=== PATIENT | female | born 1980 | race Caucasian/White ===

== ENCOUNTER → 2017-06-03 | Outpatient (CLI) | payer BC ==
[~2017-06-03] MED LIST: OXYC-57 PO; PRENTAB26 PO
== END | disposition home or self-care (01) ==
LOC: C.LABSPEC 12:54
PROVIDERS: ATTEND Physician Assistant
DX: N89.8 Other specified noninflammatory disorders of vagina (principal)

== ENCOUNTER → 2017-06-28 | Outpatient (CLI) | payer BC ==
[2017-06-28 09:26] LABS: PROLACTIN 7.4 ng/mL
== END | disposition home or self-care (01) ==
LOC: C.LAB 08:09
PROVIDERS: ATTEND Obstetrics & Gynecology
DX: N97.9 Female infertility, unspecified (principal)

== ENCOUNTER → 2017-10-08 | Outpatient (CLI) | payer BC ==
[2017-10-08 15:03] LABS: ALT/SGPT 21 U/L (12-78); AST/SGOT 20 U/L (15-37); CREATININE 0.66 mg/dl (0.60-1.20)
[2017-10-08 15:06] LABS: ALKALINE PHOSPHATASE 52 U/L (45-117)
== END | disposition home or self-care (01) ==
LOC: C.LAB1850 12:48
PROVIDERS: ATTEND Obstetrics & Gynecology
DX: Z51.81 Encounter for therapeutic drug level monitoring (principal); Z79.899 Other long term (current) drug therapy

== ENCOUNTER → 2018-01-17 | Outpatient (CLI) | payer BC ==
[2018-01-17 07:28] LABS: HEMATOCRIT 41.3 % (37-47); MEAN CORPUSCULAR HEMOGLOBIN 30.2 pg (25-34); MEAN CORPUSCULAR HGB CONC 33.9 g/dl (32-36); MEAN PLATELET VOLUME 8.4 fL (7.4-10.4); PLATELET COUNT 264 K/uL (130-400); RED CELL DISTRIBUTION WIDTH SD 41.8 fL (36.4-46.3); WHITE BLOOD COUNT 5.03 K/uL (4.8-10.8)
[2018-01-17 07:47] LABS: HEMOGLOBIN A1C 5.6 % (4.5-5.6)
[2018-01-17 09:03] LABS: HEP C IGG 13 YRS+OLDER_RFLX NEG (NEG)
== END | disposition home or self-care (01) ==
LOC: C.LAB 07:03
PROVIDERS: ATTEND Obstetrics & Gynecology Reproductive Endocrinology
DX: Z01.83 Encounter for blood typing (principal); E28.2 Polycystic ovarian syndrome; Z11.59 Encounter for screening for other viral diseases; Z11.3 Encounter for screening for infections with a predominantly sexual mode of transmission; Z11.4 Encounter for screening for human immunodeficiency virus [HIV]; Z13.21 Encounter for screening for nutritional disorder

== ENCOUNTER → 2018-01-21 | Outpatient (CLI) | payer BC ==
--- NOTE | 2018-01-21 11:27 | DIAGNOSTIC IMAGING REPORT ---
HYSTEROSALPINGOGRAM CLINICAL HISTORY: Infertility. COMPARISON STUDY: Pelvic ultrasound January 14, 2018. FLUOROSCOPY TIME: 0.9 minutes. TECHNIQUE: A hysterosalpingogram was performed by Dr. Arce. The cervix was cannulated and water-soluble contrast was instilled into the uterine cavity. 5 fluoroscopic images were obtained. FINDINGS: Note is made of a persistent filling defect within the left superior aspect of the uterine cavity adjacent to the cornua. This corresponds to the echogenic lesion shown on ultrasound of January 06, 2018. No additional filling defects are identified. Both fallopian tubes were patent with free spillage bilaterally. Uterine morphology is normal. IMPRESSION: 1. Patent bilateral fallopian tubes. 2. Persistent filling defect within the left superior aspect of the uterine cavity adjacent to the cornua which corresponds to the echogenic lesion on ultrasound of January 14, 2018. Overall, the imaging findings favor a polyp. Electronically signed by: Harvinder An M.D. 01/21/2018 11:25 AM Dictated Date/Time: 01/21/2018 11:21 AM
--- NOTE | 2018-01-21 12:27 | OPERATIVE REPORT ---
DATE OF OPERATION: 01/21/2018 PREOPERATIVE DIAGNOSIS: 1. Infertility. 2. Questionable endometrial mass. POSTOPERATIVE DIAGNOSIS: Same. PROCEDURES: Hysterosalpingogram. SURGEON: Dr. Arce. ANESTHESIA: None. PROCEDURE: The patient presented to radiology where she was identified verbally and by bracelet. We confirmed that she was having a hystersalpingogram. She was placed in the supine position in a frog leg. A speculum was placed. The cervix was cleaned with Betadine. The anterior lip was grabbed with an Allis. The introducer was placed into the cervix. The procedure was initiated when radiology entered the room. For the full report please see radiology. Then, the procedure was terminated. All instruments removed from the vagina. There was no bleeding. The patient was discharged home in stable condition. Last menstrual period was 01/11/2018 and she was not prescribed preoperative antibiotics by her doctor. I attest to the content of the Intraoperative Record and any orders documented therein. Any exception s are noted below.
== END | disposition home or self-care (01) ==
LOC: C.RAD 10:35
PROVIDERS: ATTEND Obstetrics & Gynecology
DX: Z31.41 Encounter for fertility testing (principal)

== ENCOUNTER → 2018-02-04 | Day surgery (SDC) | payer BC ==
[2018-02-03 07:33] VITALS: Ht 160 cm; Wt 65.5 kg
[~2018-02-04] VITALS: Ht 160 cm; Wt 65.5 kg
[~2018-02-04] MED LIST changes: +ATROPINE SULFATE 0.1 MG/ML 5ML SYR IV PRN; +DEXAMETHASONE SOD INJ 4 MG/ML VIAL ONE; +EpHEDrine SULFATE INJ 50 MG/ML AMP IV PRN; +FENTANYL CITRATE INJ 50 MCG/1 ML 2 ML VIAL IV PRN; +FENTANYL CITRATE INJ 50 MCG/1 ML 2 ML VIAL ONE; +FLUMAZENIL 0.1 MG/1 ML 10 ML VIAL IV PRN; +GLC/500 PO; +IBUPROFEN 600 MG TAB PO PRN; +KETOROLAC TROMETHAMINE 30 MG/ML VIAL IV. PRN; +KETOROLAC TROMETHAMINE 30 MG/ML VIAL ONE; +LACTATED RINGER'S 1000ML 1,000 ML IV SCH; +LIDOCAINE HCL 2% 2 ML VIAL (20MG/ML) ONE; +MIDAZOLAM HCL 1 MG/ML 2ML VIAL ONE; +NALOXONE HCL 0.4 MG/1 ML VIAL/CARP IV PRN; +ONDANSETRON INJ 2 MG/ML 2 ML VIAL IV PRN; +ONDANSETRON INJ 2 MG/ML 2 ML VIAL ONE; -OXYC-57 PO; +OXYCODONE/ACETAMINOPHEN 5-325 TAB PO PRN; +PROMETHAZINE HCL INJ 12.5 MG in SODIUM CHLORIDE 0.9% 50ML 50 ML IV PRN; +PROMETHAZINE HCL INJ 25 MG in SODIUM CHLORIDE 0.9% 50ML 50 ML IV PRN; +PROPOFOL IV EMULSION 10 MG/ML 20 ML VIAL IV ONE; +SCOPOLAMINE 1.5 MG TDSY TD ONE; +SODIUM CHLORIDE 0.9% 1000ML 1,000 ML IV SCH
--- NOTE | 2018-02-04 12:43 | History & Physical Bridge - [place] ---
H&P Re-Evaluation Bridge Note: I have examined the patient, reviewed the History & Physical and in the interval since the performance of the History & Physical I have noted the following changes of clinical significance: No changes noted
--- NOTE | 2018-02-04 12:44 | Discharge Instructions ---
Discharge Instructions Date of Service Feb 04, 2018. Admission Reason for Admission: Endometrial Polyp Discharge Discharge Diagnosis / Problem: endometrial polyp Discharge Goals Goal(s): Routine recovery after surgery Activity Recommendations Activity Limitations: per Instructions/Follow-up section . Instructions / Follow-Up Instructions / Follow-Up ACTIVITY RECOMMENDATIONS: * Avoid tampons, douching, hot tubs, pools, and intercourse until bleeding has stopped. * May shower as usual. * No strenuous activity for 24-48 hours. After 24-48 hours, you may do anything you feel like doing (driving and sports are okay). SPECIAL CARE INSTRUCTIONS: Special Diet: * Mild nausea may occur in the immediate post-operative period. * Take clear liquids such as tea, cola or bouillon until all nausea has subsided; you may then resume your normal diet. Special Care: * Light bleeding and vaginal spotting can last from a few days to 3-4 weeks. Call your doctor if bleeding becomes heavier than the heaviest part of your period. * Check your temperature twice a day for one week. If it goes above 100.4 degrees Fahrenheit (38.0 Celsius), notify your doctor. * Call your doctor's office for an appointment for 6 weeks after your surgery. FOLLOW-UP VISIT: Call your doctor's office for an appointment for 6 weeks after your surgery. Current Hospital Diet Patient's current hospital diet: Discharge Diet Recommended Diet: Regular Diet Pending Studies Studies pending at discharge: no Laboratory Results Hemoglobin A1c Test 01/17/18 07:06 Range/Units Estimated Average Glucose 114 mg/dl Hemoglobin A1c 5.6 4.5-5.6 % Lipid Panel Test 01/17/18 07:06 Range/Units Triglycerides Level 53 0-150 mg/dl Cholesterol Level 157 0-200 mg/dl HDL Cholesterol 77 mg/dl Cholesterol/HDL Ratio 2.0 LDL Cholesterol, Calculated 69 mg/dl Medical Emergencies . Who to Call and When: Medical Emergencies: If at any time you feel your situation is an emergency, please call 911 immediately. . Non-Emergent Contact Non-Emergency issues call your: Financial Services Specialist . . "Provider Documentation" section prepared by Giorgio Casanova. .
--- NOTE | 2018-02-04 13:54 | [facility] Post Operative Brief Note ---
Immediate Operative Summary Operative Date Feb 04, 2018. Pre-Operative Diagnosis Endometrial Polyp Post-Operative Diagnosis same Procedure(s) Performed Hysteroscopy, Myosure Polypectomy Surgeon Dr. Casanova Cathode Ray Tube Assembler Surgeon(s) 0 Estimated Blood Loss 5cc Findings Consistent with Post-Op Diagnosis Specimens A. Myosure Specimen Drains None Anesthesia Type General Complication(s) none Disposition Accompanied Pt To Recovery: no Disposition: Recovery Room / PACU
[2018-02-04 14:37] VITALS: TEMP 36.5
[2018-02-04 14:59] VITALS: BP 97/62; PULSE 46; O2SAT 100
--- NOTE | 2018-02-04 15:02 | Anesthesia Progress Nt - [facility] ---
Anesthesia Post Op Note Date & Time Feb 04, 2018 at 15:01 Vital Signs Pain Intensity: 0 Vital Signs Past 12 Hours Date Time Temp Pulse Resp B/P (MAP) Pulse Ox O2 Delivery O2 Flow Rate FiO2 02/04/18 14:59 46 20 97/62 (74) 100 Room Air 02/04/18 14:37 36.5 46 20 96/64 (75) 100 Room Air 02/04/18 14:32 46 12 100 02/04/18 14:32 49 12 02/04/18 14:31 98/71 02/04/18 14:30 36.8 43 20 98/71 100 Room Air 02/04/18 14:28 46 18 02/04/18 14:28 43 18 100 02/04/18 14:27 44 17 100 02/04/18 14:27 45 17 02/04/18 14:26 101/63 02/04/18 14:23 43 13 100 18 14:23 43 13 02/04/18 14:22 43 16 100 02/04/18 14:22 44 16 02/04/18 14:21 99/66 18 14:17 50 14 100 18 14:17 49 14 18 14:16 99/72 18 14:13 46 16 100 18 14:13 47 16 02/04/18 14:12 48 13 100 18 14:12 47 13 02/04/18 14:11 106/61 02/04/18 14:09 50 16 02/04/18 14:09 51 16 100 18 14:06 102/64 18 14:05 100/72 18 14:04 36.5 45 14 100/72 100 Mask 8 18 11:59 36.6 58 16 100/72 (81) 100 Room Air Notes Mental Status: alert / awake / arousable, participated in evaluation Pt Amnestic to Procedure: Yes Nausea / Vomiting: adequately controlled Pain: adequately controlled Airway Patency, RR, SpO2: stable & adequate BP & HR: stable & adequate Hydration State: stable & adequate Anesthetic Complications: no major complications apparent
--- NOTE | 2018-02-04 17:24 | OPERATIVE REPORT ---
DATE OF OPERATION: 02/04/2018 PREOPERATIVE DIAGNOSIS: Endometrial polyp. POSTOPERATIVE DIAGNOSIS: Endometrial polyp. PROCEDURE: Hysteroscopy, MyoSure polypectomy. SURGEON: Dr. Casanova. FISCAL SPECIALIST: None. ESTIMATED BLOOD LOSS: 5 mL FINDINGS: Consistent with postop diagnosis. SPECIMENS: MyoSure specimen. DRAINS: None. ANESTHETIC: General. COMPLICATIONS: None. DISPOSITION: Recovery room. DESCRIPTION OF PROCEDURE: Juanita was given a general anesthetic, prepped and draped in dorsal lithotomy position. Bladder drained. Uterus examined and found to be axial in position, normal size. Weighted speculum placed in the vagina, single tooth tenaculum on the anterior lip of the cervix. Cervix then dilated starting with #13 dilator and methodically progressing to a #25 dilator. On insertion of the MyoSure hysteroscope using normal saline as her solution I visualized normal tubal ostia x2. No sign of perforation. There did appear to be a somewhat polypoid lesion near the anterior aspect of the fundus. We connected the MyoSure device and resected this region. This may have been endometrial thickness or polyp. We will determine at the final time of pathology. There was no sign of perforation and there were no other lesions in the uterus. Pictures taken for documentation. Instruments removed from the cervix and vagina. Sponge, needle and instrument counts correct. Patient sent to recovery room in stable condition. I attest to the content of the Intraoperative Record and any orders documented therein. Any exception s are noted below.
== END | disposition home or self-care (01) ==
LOC: X.SURG 11:49
PROVIDERS: ATTEND Obstetrics & Gynecology
DX: N84.0 Polyp of corpus uteri (principal); N97.9 Female infertility, unspecified; Z83.3 Family history of diabetes mellitus; Z82.49 Family history of ischemic heart disease and other diseases of the circulatory system; Z79.84 Long term (current) use of oral hypoglycemic drugs

== ENCOUNTER → 2018-02-12 | Outpatient (CLI) | payer BC ==
[~2018-02-12] MED LIST changes: -ATROPINE SULFATE 0.1 MG/ML 5ML SYR IV PRN; -DEXAMETHASONE SOD INJ 4 MG/ML VIAL ONE; -EpHEDrine SULFATE INJ 50 MG/ML AMP IV PRN; -FENTANYL CITRATE INJ 50 MCG/1 ML 2 ML VIAL IV PRN; -FENTANYL CITRATE INJ 50 MCG/1 ML 2 ML VIAL ONE; -FLUMAZENIL 0.1 MG/1 ML 10 ML VIAL IV PRN; -IBUPROFEN 600 MG TAB PO PRN; -KETOROLAC TROMETHAMINE 30 MG/ML VIAL IV. PRN; -KETOROLAC TROMETHAMINE 30 MG/ML VIAL ONE; -LACTATED RINGER'S 1000ML 1,000 ML IV SCH; -LIDOCAINE HCL 2% 2 ML VIAL (20MG/ML) ONE; -MIDAZOLAM HCL 1 MG/ML 2ML VIAL ONE; -NALOXONE HCL 0.4 MG/1 ML VIAL/CARP IV PRN; -ONDANSETRON INJ 2 MG/ML 2 ML VIAL IV PRN; -ONDANSETRON INJ 2 MG/ML 2 ML VIAL ONE; -OXYCODONE/ACETAMINOPHEN 5-325 TAB PO PRN; -PROMETHAZINE HCL INJ 12.5 MG in SODIUM CHLORIDE 0.9% 50ML 50 ML IV PRN; -PROMETHAZINE HCL INJ 25 MG in SODIUM CHLORIDE 0.9% 50ML 50 ML IV PRN; -PROPOFOL IV EMULSION 10 MG/ML 20 ML VIAL IV ONE; -SCOPOLAMINE 1.5 MG TDSY TD ONE; -SODIUM CHLORIDE 0.9% 1000ML 1,000 ML IV SCH
[2018-02-12 16:02] LABS: LUTEINIZING HORMONE 4.64 IU/L
== END | disposition home or self-care (01) ==
LOC: C.LAB1850 14:51
PROVIDERS: ATTEND Obstetrics & Gynecology Reproductive Endocrinology
DX: Z31.41 Encounter for fertility testing (principal)

== ENCOUNTER → 2018-02-23 | Outpatient (CLI) | payer BC ==
[2018-02-23 11:34] LABS: LUTEINIZING HORMONE 9.21 IU/L
== END | disposition home or self-care (01) ==
LOC: C.LAB1850 10:31
PROVIDERS: ATTEND Obstetrics & Gynecology Reproductive Endocrinology
DX: Z31.41 Encounter for fertility testing (principal)

== ENCOUNTER → 2018-03-12 | Outpatient (CLI) | payer BC | END | disposition home or self-care (01) | LOC: C.LAB1850 08:39 | PROVIDERS: ATTEND Obstetrics & Gynecology Reproductive Endocrinology | DX: Z31.41 Encounter for fertility testing (principal) ==

== ENCOUNTER → 2018-05-08 | Outpatient (CLI) | payer BC | END | disposition home or self-care (01) | LOC: C.LAB 07:20 | PROVIDERS: ATTEND Obstetrics & Gynecology Reproductive Endocrinology | DX: Z31.41 Encounter for fertility testing (principal) ==

== ENCOUNTER → 2018-06-11 | Outpatient (CLI) | payer BC | END | disposition home or self-care (01) | LOC: C.LAB1850 10:59 | PROVIDERS: ATTEND Obstetrics & Gynecology Reproductive Endocrinology | DX: N97.9 Female infertility, unspecified (principal) ==